=== PATIENT | female | born 1975 | race Caucasian/White ===

== ENCOUNTER 2017-05-03 20:35 | Inpatient (IN) | payer OTHER ==
[~2017-05-03] VITALS: Ht 167.6 cm; Wt 63.5 kg
[~2017-05-03 20:35] MED LIST: OXYC1SOL5 PO; PRENCAP10 PO
[2017-05-03] MEDS ORDERED: SODIUM CHLOR 0.9% 1000 ML INJ 1,000 ML IV ONE ×2 (21:09→23:30)
[2017-05-03] MEDS ORDERED: SODIUM CHLORIDE 0.9% FLUSH 10 ML FLUSH IVF PRN (21:15)
[2017-05-03] MEDS ORDERED: MORPHINE SULFATE 4 MG/ML INJ IV PUSH ONE ×3 (21:15→23:30)
[2017-05-03] MEDS ORDERED: ONDANSETRON HCL 4 MG/2 ML VIAL IV PUSH ONE (21:15)
--- NOTE | 2017-05-03 21:18 | PD ---
HPI Chief Complaint: Abdominal Pain Time Seen by Provider: 21:02 Travel History International Travel<30 days: No Contact w/Intl Traveler<30days: No Traveled to known affect area: No History of Present Illness HPI The patient is a 41-year-old female who presents to the emergency department for abdominal pain and diarrhea. The patient states she was recently treated for bronchitis/pneumonia infection with Levaquin. The patient finished the Levaquin several days ago. The patient then developed abdominal pain that was generalized, crampy, and associated diarrhea. The patient was seen in an urgent care on Tuesday and diagnosed with colitis, she was prescribed Bentyl and Zofran. The patient states the pain has been intermittent , but returned earlier today, approximately 2 hours prior to arrival. The abdominal pain is generalized, worse in the lower abdomen, crampy, and severe. She notes approximately 15-20 episodes of diarrhea per day which she describes as loose, watery, brown with a foul smell. She denies any known history of C. difficile. She denies any recent international travel. She does complain of mild nausea but denies any vomiting today. Previous abdominal surgeries include section. The patient's last menstrual cycle was on April 20 , however, she has had some spotting over the last 2 days. She denies any dysuria, frequency, urgency, or vaginal discharge. The patient's primary physician is Dr. Ramos. [facility] Past Medical History Respiratory: Yes (STATES HX OF SINUS PROBLEMS) ?: Not Past Surgical History Narrative Surgical section Social History Alcohol Use: Yes (OCCASIONALLY) Tobacco Use: Yes (1/2 PPD.STATES STARTED CHANTIX PCK 2 DAYS AGO.) Substance Use: No Allergies-Medications (Allergen,Severity, Reaction): Coded Allergies: penicillin G (Unverified Allergy, Severe, 05/03/17) amoxicillin (Unverified Allergy, Unknown, 05/03/17) Reported Meds & Prescriptions Reported Meds & Active Scripts Active Reported Dulera 120 Act Inh (Mometasone-Formoterol 120 Act Inh) 100-5 Mcg/Act Inh 2 Puff INH BID Review of Systems Except as stated in HPI: all other systems reviewed are Neg General / Constitutional: No: Fever Cardiovascular: No: Chest Pain or Discomfort Respiratory: Positive: Cough, No: Shortness of Breath Gastrointestinal: Positive: Nausea, Vomiting, Diarrhea, Abdominal Pain Genitourinary: Positive: Vaginal Bleeding (spotting), No: Dysuria, Discharge Physical Exam Narrative GENERAL: Awake, alert, pleasant 41-year-old female who appears her stated age and is in no acute respiratory distress. She does appear moderate pain. SKIN: Focused skin assessment warm/dry. HEAD: Atraumatic. Normocephalic. EYES: Pupils equal and round. No scleral icterus. No injection or drainage. ENT: No nasal bleeding or discharge. Mucous membranes pink and moist. NECK: Trachea midline. No JVD. CARDIOVASCULAR: Regular rate and rhythm. No murmur appreciated. Heart rate in the 80s. RESPIRATORY: No accessory muscle use. Clear to auscultation. Breath sounds equal bilaterally. GASTROINTESTINAL: Abdomen diffusely tender, worse in the suprapubic and left lower quadrant. No guarding or rigidity. MUSCULOSKELETAL: No obvious deformities. No clubbing. No cyanosis. No edema. NEUROLOGICAL: Awake and alert. No obvious cranial nerve deficits. Motor grossly within normal limits. Normal speech. PSYCHIATRIC: Appropriate mood and affect; insight and judgment normal. Data Data Last Documented VS Vital Signs Date Time Temp Pulse Resp B/P (MAP) Pulse Ox O2 Delivery O2 Flow Rate FiO2 05/03/17 22:06 80 20 143/62 (89) 100 Room Air Orders Orders Complete Blood Count With Diff (05/03/17 21:09) Comprehensive Metabolic Panel (05/03/17 21:09) Urinalysis - C+S If Indicated (05/03/17 21:09) Lipase (05/03/17 21:09) Ct Abd/Pel W/O Iv Contrast (05/03/17 ) Iv Access Insert/Monitor (05/03/17 21:09) Ecg Monitoring (05/03/17 21:09) Oximetry (05/03/17 21:09) Morphine Inj (Morphine Inj) (05/03/17 21:15) Ondansetron Inj (Zofran Inj) (05/03/17 21:15) Sodium Chlor 0.9% 1000 Ml Inj (Ns 1000 M (05/03/17 21:09) Sodium Chloride 0.9% Flush (Ns Flush) (05/03/17 21:15) C Diff Toxin Pcr (05/03/17 21:09) Enteric Path (Stool) (05/03/17 21:09) Ed Urine Pregnancytest Poc (05/03/17 21:09) Lactic Acid (05/03/17 21:09) Potassium Chlor 20 Meq Premix (Kcl 20 Me (05/03/17 22:00) Metronidazole 500 Mg Inj (Flagyl 500 Mg (05/03/17 22:00) Morphine Inj (Morphine Inj) (05/03/17 22:15) (Hub Use Only)Inp Phy Cons/Ref (05/03/17 ) Admit Order (Ed Use Only) (05/03/17 23:19) Labs Laboratory Tests Test 05/03/17 21:15 05/03/17 21:45 White Blood Count 20.4 TH/MM3 Red Blood Count 5.27 MIL/MM3 Hemoglobin 15.1 GM/DL Hematocrit 45.3 % Mean Corpuscular Volume 85.8 FL Mean Corpuscular Hemoglobin 28.6 PG Mean Corpuscular Hemoglobin Concent 33.4 % Red Cell Distribution Width 14.0 % Platelet Count 502 TH/MM3 Mean Platelet Volume 6.9 FL Neutrophils (%) (Auto) 65.1 % Lymphocytes (%) (Auto) 28.5 % Monocytes (%) (Auto) 5.4 % Eosinophils (%) (Auto) 0.3 % Basophils (%) (Auto) 0.7 % Neutrophils # (Auto) 13.3 TH/MM3 Lymphocytes # (Auto) 5.8 TH/MM3 Monocytes # (Auto) 1.1 TH/MM3 Eosinophils # (Auto) 0.1 TH/MM3 Basophils # (Auto) 0.1 TH/MM3 CBC Comment AUTO DIFF Differential Total Cells Counted 100 Neutrophils % (Manual) 67 % Lymphocytes % 25 % Monocytes % 8 % Neutrophils # (Manual) 13.7 TH/MM3 Differential Comment FINAL DIFF MANUAL Platelet Estimate HIGH Platelet Morphology Comment NORMAL Red Cell Morphology Comment NORMAL Blood Urea Nitrogen 17 MG/DL Creatinine 0.87 MG/DL Random Glucose 92 MG/DL Total Protein 7.2 GM/DL Albumin 3.5 GM/DL Calcium Level 8.3 MG/DL Alkaline Phosphatase 63 U/L Aspartate Amino Transf (AST/SGOT) 14 U/L Alanine Aminotransferase (ALT/SGPT) 25 U/L Total Bilirubin 0.5 MG/DL Sodium Level 137 MEQ/L Potassium Level 2.8 MEQ/L Chloride Level 103 MEQ/L Carbon Dioxide Level 24.1 MEQ/L Anion Gap 10 MEQ/L Estimat Glomerular Filtration Rate 72 ML/MIN Lactic Acid Level 1.8 mmol/L Lipase 216 U/L Urine Color YELLOW Urine Turbidity CLEAR Urine pH 6.5 Urine Specific [place] 1.016 Urine Protein TRACE mg/dL Urine Glucose (UA) NEG mg/dL Urine Ketones NEG mg/dL Urine Occult Blood NEG Urine Nitrite NEG Urine Bilirubin NEG Urine Urobilinogen LESS THAN 2.0 MG/DL Urine Leukocyte Esterase NEG Urine RBC 1 /hpf Urine WBC 1 /hpf Urine Squamous Epithelial Cells 2 /hpf Urine Bacteria RARE /hpf Urine Hyaline Casts 1 /lpf Urine Mucus FEW /lpf Microscopic Urinalysis Comment CULT NOT INDICATED Stool C. difficile Toxin (PCR) NEGATIVE Stl C. difficile Toxin Epiderm 027 PRESUMPTIVE NEGATIVE MDM Medical Decision Making Medical Screen Exam Complete: Yes Emergency Medical Condition: Yes Medical Record Reviewed: Yes Interpretation(s) Last Impressions Abdomen/Pelvis CT 05/03/17 0000 Signed Impressions: Service Date/Time: Wednesday, May 03, 2017 21:38 - CONCLUSION: 1. Diffuse air-filled mildly dilated colon raising possibility of diffuse ileus versus distal colonic obstruction. Clinical correlation is recommended. 2. Minimal focal reticulonodular infiltrate within the left lower lobe. Mao Ferrera MD Laboratory Tests Test 05/03/17 21:15 05/03/17 21:45 White Blood Count 20.4 TH/MM3 Red Blood Count 5.27 MIL/MM3 Hemoglobin 15.1 GM/DL Hematocrit 45.3 % Mean Corpuscular Volume 85.8 FL Mean Corpuscular Hemoglobin 28.6 PG Mean Corpuscular Hemoglobin Concent 33.4 % Red Cell Distribution Width 14.0 % Platelet Count 502 TH/MM3 Mean Platelet Volume 6.9 FL Neutrophils (%) (Auto) 65.1 % Lymphocytes (%) (Auto) 28.5 % Monocytes (%) (Auto) 5.4 % Eosinophils (%) (Auto) 0.3 % Basophils (%) (Auto) 0.7 % Neutrophils # (Auto) 13.3 TH/MM3 Lymphocytes # (Auto) 5.8 TH/MM3 Monocytes # (Auto) 1.1 TH/MM3 Eosinophils # (Auto) 0.1 TH/MM3 Basophils # (Auto) 0.1 TH/MM3 CBC Comment AUTO DIFF Differential Total Cells Counted 100 Neutrophils % (Manual) 67 % Lymphocytes % 25 % Monocytes % 8 % Neutrophils # (Manual) 13.7 TH/MM3 Differential Comment FINAL DIFF MANUAL Platelet Estimate HIGH Platelet Morphology Comment NORMAL Red Cell Morphology Comment NORMAL Blood Urea Nitrogen 17 MG/DL Creatinine 0.87 MG/DL Random Glucose 92 MG/DL Total Protein 7.2 GM/DL Albumin 3.5 GM/DL Calcium Level 8.3 MG/DL Alkaline Phosphatase 63 U/L Aspartate Amino Transf (AST/SGOT) 14 U/L Alanine Aminotransferase (ALT/SGPT) 25 U/L Total Bilirubin 0.5 MG/DL Sodium Level 137 MEQ/L Potassium Level 2.8 MEQ/L Chloride Level 103 MEQ/L Carbon Dioxide Level 24.1 MEQ/L Anion Gap 10 MEQ/L Estimat Glomerular Filtration Rate 72 ML/MIN Lactic Acid Level 1.8 mmol/L Lipase 216 U/L Urine Color YELLOW Urine Turbidity CLEAR Urine pH 6.5 Urine Specific [place] 1.016 Urine Protein TRACE mg/dL Urine Glucose (UA) NEG mg/dL Urine Ketones NEG mg/dL Urine Occult Blood NEG Urine Nitrite NEG Urine Bilirubin NEG Urine Urobilinogen LESS THAN 2.0 MG/DL Urine Leukocyte Esterase NEG Urine RBC 1 /hpf Urine WBC 1 /hpf Urine Squamous Epithelial Cells 2 /hpf Urine Bacteria RARE /hpf Urine Hyaline Casts 1 /lpf Urine Mucus FEW /lpf Microscopic Urinalysis Comment CULT NOT INDICATED Stool C. difficile Toxin (PCR) NEGATIVE Stl C. difficile Toxin Epiderm 027 PRESUMPTIVE NEGATIVE Differential Diagnosis Differential diagnosis includes colitis, C. difficile, enteritis, partial small bowel obstruction, ileus, perforated viscus, diverticulitis, dehydration, ovarian torsion, ectopic , atypical appendicitis. Narrative Course IV was established, labs are drawn and sent, and the patient was placed on cardiac telemetry monitoring and continuous pulse oximetry monitoring. The patient was administer morphine, Zofran, and IV fluids. C. difficile was ordered. Noncontrast CT of the abdomen and pelvis was ordered to evaluate for possible pancolitis versus perforated viscus. UA was sent to lab and bedside UA test was obtained. CT revealed diffuse air-filled mildly dilated colon raising possibility of diffuse ileus versus distal colonic obstruction, clinical correlation is recommended. Minimal focal reticulonodular infiltrate within the left lower lobe. The patient has a diffuse air field mildly dilated colon, could be ileus versus distal colonic obstruction, versus toxic megacolon from C. difficile. Stool was sent for C. difficile, patient was administered Flagyl 500 mg intravenously. The patient's potassium is 2.8, she was administered Flagyl intravenously. The patient will be admitted to the on-call medical service. C. difficile was negative. Patient has apparent ileus versus colonic obstruction. May need GI and/or surgery evaluation is symptoms persist. Sepsis Criteria SIRS Criteria (2 or more): WBC > 21336, < 4000 or > 10% bands Physician Communication Physician Communication The on-call medical service was paged for admission. I discussed the patient with Dr. Watson who agrees with admission. Diagnosis Primary Impression: Ileus Additional Impressions: Diarrhea Qualified Codes: R19.7 - Diarrhea, unspecified Hypokalemia Admitting Information Admitting Physician Requests: Admit Condition: Stable Zac Sneed MD May 03, 2017 21:18
[2017-05-03 21:22] VITALS: BP 137/61; PULSE 83; RESP 24; O2SAT 100
[2017-05-03] MEDS ORDERED: DULE100A INH (21:22)
[2017-05-03 21:29] LABS: AUTOMATED NEUTROPHIL # 13.3 TH/MM3 (1.8-7.7); BASOPHIL # 0.1 TH/MM3 (0-0.2); BASOPHIL % 0.7 % (0.0-2.0); EOSINOPHIL # 0.1 TH/MM3 (0-0.4); EOSINOPHIL % 0.3 % (0.0-4.0); HEMATOCRIT 45.3 % (35.0-46.0); HEMOGLOBIN 15.1 GM/DL (11.6-15.3); LYMPH % 28.5 % (9.0-44.0); LYMPHOCYTE # 5.8 TH/MM3 (1.0-4.8); MEAN CELL VOLUME 85.8 FL (80.0-100.0); MEAN CORPUSCULAR HEMOGLOBIN 28.6 PG (27.0-34.0); MEAN CORPUSCULAR HGB CONC 33.4 % (32.0-36.0); MEAN PLATELET VOLUME 6.9 FL (7.0-11.0); MONO % 5.4 % (0.0-8.0); MONOCYTE # 1.1 TH/MM3 (0-0.9); NEUT % 65.1 % (16.0-70.0); PLATELET COUNT 502 TH/MM3 (150-450); RED BLOOD COUNT 5.27 MIL/MM3 (4.00-5.30); WHITE BLOOD COUNT 20.4 TH/MM3 (4.0-11.0)
[2017-05-03 21:48] LABS: ALBUMIN 3.5 GM/DL (3.4-5.0); ALT (GPT) 25 U/L (10-53); AST (GOT) 14 U/L (15-37); BICARBONATE 24.1 MEQ/L (21.0-32.0); BLOOD UREA NITROGEN 17 MG/DL (7-18); CALCIUM 8.3 MG/DL (8.5-10.1); CHLORIDE 103 MEQ/L (98-107); CREATININE 0.87 MG/DL (0.50-1.00); GLOMERULAR FILTRATION RATE 72 ML/MIN (>89); GLUCOSE,RANDOM 92 MG/DL (74-106); SODIUM (NA) 137 MEQ/L (136-145)
--- NOTE | 2017-05-03 21:54 | RADRPT ---
EXAM DATE/TIME: 05/03/2017 21:38 [facility] COMPARISON: No previous studies available for comparison. INDICATIONS : Patient complains of abdominal pain. ORAL CONTRAST: No oral contrast ingested. RADIATION DOSE: 6.64 CTDIvol (mGy) MEDICAL HISTORY : None SURGICAL HISTORY : None. ENCOUNTER: Initial ACUITY: 1 day PAIN SCALE: 10/10 LOCATION: lower quadrant abdomen TECHNIQUE: Volumetric scanning of the abdomen and pelvis was performed. Using automated exposure control and ad justment of the mA and/or kV according to patient size, radiation dose was kept as low as reasonably achievable to obtain optimal diagnostic quality images. DICOM format image data is available electro nically for review and comparison. FINDINGS: LOWER LUNGS: Minimal reticulonodular infiltrate is noted within the left lower lobe. LIVER: Homogeneous density without lesion. There is no dilation of the biliary tree. No calcified gallston es. SPLEEN: Normal size without lesion. PANCREAS: Within normal limits. KIDNEYS: Normal in size and shape. There is no mass, stone, or hydronephrosis. ADRENAL GLANDS: Within normal limits. VASCULAR: There is no aortic aneurysm. BOWEL/MESENTERY: Diffuse air-filled mildly dilated loops of colon are noted. No definite transition point is identifie d on this examination. Differential includes diffuse ileus or distal colonic obstruction. Clinical co rrelation is recommended. ABDOMINAL WALL: Within normal limits. RETROPERITONEUM: There is no lymphadenopathy. BLADDER: No wall thickening or mass. REPRODUCTIVE: Within normal limits. INGUINAL: There is no lymphadenopathy or hernia. MUSCULOSKELETAL: Within normal limits for patient age. CONCLUSION: 1. Diffuse air-filled mildly dilated colon raising possibility of diffuse ileus versus distal colonic obstruction. Clinical correlation is recommended. 2. Minimal focal reticulonodular infiltrate within the left lower lobe. Mao Ferrera MD on May 03, 2017 at 21:45 Board Certified Radiologist. This report was verified electronically.
[2017-05-03 21:56] LABS: ALKALINE PHOSPHATASE 63 U/L (45-117); TOTAL BILIRUBIN ADULT 0.5 MG/DL (0.2-1.0); TOTAL PROTEIN 7.2 GM/DL (6.4-8.2)
[2017-05-03] MEDS ORDERED: metroNIDAZOLE 500 MG INJ 100 ML IV ONE (22:00)
[2017-05-03] MEDS: POTASSIUM CHLOR 20 MEQ PREMIX 100 ML IV SCH (22:00)
[2017-05-03 22:06] VITALS: BP 143/62; PULSE 80; RESP 20; O2SAT 100
[2017-05-03 22:06] LABS: BACTERIA, URINE RARE /hpf; BILIRUBIN, URINE NEG (NEG); BLOOD, URINE NEG (NEG); GLUCOSE,URINE NEG (NEG); HYALINE CAST, URINE 1 /lpf (RARE); KETONE, URINE NEG (NEG); MUCUS URINE FEW /lpf (OCC); NITRITE,URINE NEG (NEG); PH, URINE 6.5 (5.0-8.5); SQUAMOUS EPITHELIAL CELL URINE 2 /hpf (0-5); URINE COLOR YELLOW (YELLW/STRAW); URINE LEUKOCYTE ESTERASE NEG (NEG)
[2017-05-03 22:37] LABS: LYMPHOCYTES 25 % (9-44); MONOCYTES 8 % (0-8); NEUTROPHIL # MANUAL DIFF 13.7 TH/MM3 (1.8-7.7); POLYS (SEG NEUTROPHILS) 67 % (16-70)
[2017-05-03] MEDS ORDERED: MAGNESIUM HYDROXIDE SUSP 30 ML CUP PO PRN (23:30)
[2017-05-03] MEDS ORDERED: MORPHINE SULFATE 2 MG/ML INJ IV PUSH PRN ×2 (23:30)
[2017-05-03] MEDS ORDERED: SODIUM CHLORIDE 0.9% FLUSH 10 ML FLUSH IV FLUSH PRN (23:30)
[2017-05-03] MEDS ORDERED: BISACODYL 10 MG SUPP RECTAL PRN (23:30)
[2017-05-03] MEDS ORDERED: ACETAMINOPHEN 325 MG TAB PO PRN (23:30)
[2017-05-03] MEDS ORDERED: NS + KCL 20 MEQ INJ 1,000 ML IV SCH (23:30)
[2017-05-03] MEDS ORDERED: NALOXONE HCL 0.4 MG/ML AMP IV PUSH PRN (23:30)
[2017-05-03] MEDS ORDERED: LACTULOSE SYRUP 20 GM/30 ML CUP PO PRN (23:30)
[2017-05-03] MEDS ORDERED: SENNOSIDES 8.6 MG TAB PO PRN (23:30)
[2017-05-03] MEDS ORDERED: HYDROmorphone HCL PF 2 MG/ML VIAL IV PUSH PRN (23:45)
--- NOTE | 2017-05-03 23:59 | HHI.HP ---
[facility] [place] [facility]an Ramos, Admission Diagnosis ileus versus colonic obstruction, diarrhea, leukocytosis Diagnoses: Travel History International Travel<30 Days: No Contact w/Intl Traveler <30 Da: No Traveled to Known Affected Are: No History of Present Illness 41-year-old female presents to the emergency department for the evaluation of severe abdominal pain. The patient reports that 4 weeks ago she was treated for bronchitis with Levaquin and prednisone. On Tuesday she then developed severe, cramping abdominal pain with accompanying nausea/vomiting/diarrhea. She reports she is having diarrhea approximately 15-20 times daily. She has accompanying fever/chills. Complains of abdominal bloating. 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 She was seen in the urgent care on Tuesday morning, diagnosed with colitis given Bentyl and Zofran and a liter of IV fluids. The patient reports that her cramping abdominal pain and diarrhea continued to worsen and she came to the emergency department for further evaluation. Vital signs: Pulse 83, respirations 20, BP 137/61, pulse ox 100% on room air. Review of Systems Except as stated in HPI: all other systems reviewed are Neg Past Family Social History Past Medical History None Past Surgical History 2 Reported Medications Reported Meds & Active Scripts Active Reported Dulera 120 Act Inh (Mometasone-Formoterol 120 Act Inh) 100-5 Mcg/Act Inh 2 Puff INH BID Allergies: Coded Allergies: penicillin G (Unverified Allergy, Severe, 05/03/17) amoxicillin (Unverified Allergy, Unknown, 05/03/17) Family History Negative for diabetes mellitus and coronary artery disease Social History Occasional alcohol. Denies tobacco and illicit drugs Physical Exam Vital Signs Vital Signs Date Time Temp Pulse Resp B/P (MAP) Pulse Ox O2 Delivery O2 Flow Rate FiO2 05/03/17 22:06 80 20 143/62 (89) 100 Room Air 05/03/17 21:58 20 05/03/17 21:22 83 24 137/61 (86) 100 Room Air 05/03/17 21:22 24 Physical Exam GENERAL: female sitting up in bed in mild distress SKIN: No rashes, ecchymoses or lesions. Cool and dry. HEAD: Atraumatic. Normocephalic. No temporal or scalp tenderness. EYES: Pupils equal round and reactive. Extraocular motions intact. No scleral icterus. No injection or drainage. ENT: Nose without bleeding, purulent drainage or septal hematoma. Throat without erythema, tonsillar hypertrophy or exudate. Uvula midline. Airway patent. NECK: Trachea midline. No JVD or lymphadenopathy. Supple, nontender, no meningeal signs. CARDIOVASCULAR: Regular rate and rhythm without murmurs, gallops, or rubs. RESPIRATORY: Clear to auscultation. Breath sounds equal bilaterally. No wheezes , rales, or rhonchi. GASTROINTESTINAL: Abdomen distended. Exquisitely tender to palpation worse in the periumbilical region. Hypoactive bowel sounds. MUSCULOSKELETAL: Extremities without clubbing, cyanosis, or edema. No joint tenderness, effusion, or edema noted. No calf tenderness. NEUROLOGICAL: Awake and alert. Cranial nerves II through XII intact. Motor and sensory grossly within normal limits. Normal speech. Laboratory Laboratory Tests Test 05/03/17 21:15 05/03/17 21:45 White Blood Count 20.4 Red Blood Count 5.27 Hemoglobin 15.1 Hematocrit 45.3 Mean Corpuscular Volume 85.8 Mean Corpuscular Hemoglobin 28.6 Mean Corpuscular Hemoglobin Concent 33.4 Red Cell Distribution Width 14.0 Platelet Count 502 Mean Platelet Volume 6.9 Neutrophils (%) (Auto) 65.1 Lymphocytes (%) (Auto) 28.5 Monocytes (%) (Auto) 5.4 Eosinophils (%) (Auto) 0.3 Basophils (%) (Auto) 0.7 Neutrophils # (Auto) 13.3 Lymphocytes # (Auto) 5.8 Monocytes # (Auto) 1.1 Eosinophils # (Auto) 0.1 Basophils # (Auto) 0.1 CBC Comment AUTO DIFF Differential Total Cells Counted 100 Neutrophils % (Manual) 67 Lymphocytes % 25 Monocytes % 8 Neutrophils # (Manual) 13.7 Differential Comment FINAL DIFF MANUAL Platelet Estimate HIGH Platelet Morphology Comment NORMAL Red Cell Morphology Comment NORMAL Blood Urea Nitrogen 17 Creatinine 0.87 Random Glucose 92 Total Protein 7.2 Albumin 3.5 Calcium Level 8.3 Alkaline Phosphatase 63 Aspartate Amino Transf (AST/SGOT) 14 Alanine Aminotransferase (ALT/SGPT) 25 Total Bilirubin 0.5 Sodium Level 137 Potassium Level 2.8 Chloride Level 103 Carbon Dioxide Level 24.1 Anion Gap 10 Estimat Glomerular Filtration Rate 72 Lactic Acid Level 1.8 Lipase 216 Urine Color YELLOW Urine Turbidity CLEAR Urine pH 6.5 Urine Specific [place] 1.016 Urine Protein TRACE Urine Glucose (UA) NEG Urine Ketones NEG Urine Occult Blood NEG Urine Nitrite NEG Urine Bilirubin NEG Urine Urobilinogen LESS THAN 2.0 Urine Leukocyte Esterase NEG Urine RBC 1 Urine WBC 1 Urine Squamous Epithelial Cells 2 Urine Bacteria RARE Urine Hyaline Casts 1 Urine Mucus FEW Microscopic Urinalysis Comment CULT NOT INDICATED Stool C. difficile Toxin (PCR) NEGATIVE Stl C. difficile Toxin Epiderm 027 PRESUMPTIVE NEGATIVE Date/Time Source Procedure Growth Status 05/03/17 21:45 Stool Stool Pending Received Result Diagram: 05/03/17211405/03/172114 Caprini VTE Risk Assessment Caprini VTE Risk Assessment: No/Low Risk (score <= 1) Caprini Risk Assessment Model Point Value = 1 Point Value = 2 Point Value = 3 Point Value = 5 Age 41-60 Minor surgery BMI > 25 kg/m2 Swollen legs Varicose veins or History of unexplained or recurrent spontaneous Oral contraceptives or hormone replacement Sepsis (< 1 month) Serious lung disease, including pneumonia (< 1 month) Abnormal pulmonary function Acute myocardial infarction Congestive heart failure (< 1 month) History of inflammatory bowel disease Medical patient at bed rest Age 61-74 Arthroscopic surgery Major open surgery (> 45 min) Laparoscopic surgery (> 45 min) Malignancy Confined to bed (> 72 hours) Immobilizing plaster cast Central venous access Age >= 75 History of VTE Family history of VTE Factor V Leiden Prothrombin [id number] Lupus anticoagulant Anticardiolipin antibodies Elevated serum homocysteine Heparin-induced thrombocytopenia Other congenital or acquired thrombophilia Stroke (< 1 month) Elective arthroplasty Hip, pelvis, or leg fracture Acute spinal cord injury (< 1 month) Prophylaxis Regimen Total Risk Factor Score Risk Level Prophylaxis Regimen 0-1 Low Early ambulation 2 Moderate Order ONE of the following: *Sequential Compression Device (SCD) *Heparin 5000 units SQ BID 3-4 Higher Order ONE of the following medications: *Heparin 5000 units SQ TID *Enoxaparin/Lovenox 40 mg SQ daily (WT < 150 kg, CrCl > 30 mL/min) *Enoxaparin/Lovenox 30 mg SQ daily (WT < 150 kg, CrCl > 10-29 mL/min) *Enoxaparin/Lovenox 30 mg SQ BID (WT < 150 kg, CrCl > 30 mL/min) AND/OR *Sequential Compression Device (SCD) 5 or more Highest Order ONE of the following medications: *Heparin 5000 units SQ TID (Preferred with Epidurals) *Enoxaparin/Lovenox 40 mg SQ daily (WT < 150 kg, CrCl > 30 mL/min) *Enoxaparin/Lovenox 30 mg SQ daily (WT < 150 kg, CrCl > 10-29 mL/min) *Enoxaparin/Lovenox 30 mg SQ BID (WT < 150 kg, CrCl > 30 mL/min) AND *Sequential Compression Device (SCD) Assessment and Plan Assessment and Plan Assessment/plan: 1. Abdominal pain/nausea/vomiting/diarrhea CT of the abdomen/pelvis showed diffuse air-filled mildly dilated colon. Diffuse ileus versus distal colonic obstruction. Unclear etiology, may be infectious as patient with elevated white count and subjective fever C. difficile negative Continue Flagyl Gastroenterology consulted, appreciate recommendations Nothing by mouth Dilaudid for pain 2. URI/bronchitis Patient continues to have productive cough Status post Levaquin Chest x-ray pending 3. Hypokalemia Supplement with IV potassium Monitor BMP FEN NPO NS + 20 K at 100 cc/hr Electrolytes: As above Early ambulation Case discussed with ED physician at length Physician Certification 2 Midnight Certification Type: Admission for Inpatient Services Order for Inpatient Services The services are ordered in accordance with Medicare regulations or non- Medicare payer requirements, as applicable. In the case of services not specified as inpatient-only, they are appropriately provided as inpatient services in accordance with the 2-midnight benchmark. Estimated LOS (days): 2 2 days is the estimated time the patient will need to remain in the hospital, assuming treatment plan goals are met and no additional complications. Post-Hospital Plan: Not yet determined Shanae Watson MD May 03, 2017 23:59
[2017-05-04] MEDS ORDERED: POTASSIUM CHLOR 10 MEQ PREMIX 100 ML IV SCH
[2017-05-04 00:14] VITALS: BP 107/55; PULSE 79; RESP 18; TEMP 96.9; O2SAT 99
--- NOTE | 2017-05-04 00:32 | RADRPT ---
EXAM DATE/TIME: 05/03/2017 23:56 [facility] COMPARISON: CT ABDOMEN & PELVIS W/O CONTRAST, May 03, 2017, 21:38. INDICATIONS : Evaluate for pneumonia. MEDICAL HISTORY : None. SURGICAL HISTORY : None. ENCOUNTER: Initial ACUITY: 1 day PAIN SCORE: 0/10 LOCATION: Bilateral chest FINDINGS: Bronchial thickening present. No focal consolidation. Mild distal airway disease left lung base seen on CT performed yesterday. No effusion. No pneumothorax. CONCLUSION: 1. Bronchial thickening without focal consolidation. Distal airway disease left lower lobe. Marcos Rodriges MD on May 04, 2017 at 0:27 Board Certified Radiologist. This report was verified electronically.
[2017-05-04] MEDS: POTASSIUM CHLOR 10 MEQ PREMIX 100 ML IV SCH ×2 (02:00→03:00)
[2017-05-04] MEDS: POTASSIUM CHLOR 20 MEQ PREMIX 100 ML IV SCH ×3 (03:04→12:00)
[2017-05-04 04:05] VITALS: BP 120/63; PULSE 88; RESP 20; TEMP 96.6; O2SAT 99
[2017-05-04 08:00] VITALS: BP 126/65; PULSE 74; RESP 18; TEMP 96.9; O2SAT 98
[2017-05-04] MEDS: SODIUM CHLORIDE 0.9% FLUSH 10 ML FLUSH IV FLUSH SCH ×2 (09:00→20:19)
[2017-05-04 09:06] LABS: AUTOMATED NEUTROPHIL # 9.9 TH/MM3 (1.8-7.7); BASOPHIL % 0.2 % (0.0-2.0); EOSINOPHIL # 0.2 TH/MM3 (0-0.4); EOSINOPHIL % 1.4 % (0.0-4.0); HEMATOCRIT 39.7 % (35.0-46.0); HEMOGLOBIN 13.1 GM/DL (11.6-15.3); LYMPH % 20.1 % (9.0-44.0); LYMPHOCYTE # 2.8 TH/MM3 (1.0-4.8); MEAN CELL VOLUME 87.1 FL (80.0-100.0); MEAN CORPUSCULAR HEMOGLOBIN 28.8 PG (27.0-34.0); MEAN CORPUSCULAR HGB CONC 33.1 % (32.0-36.0); MEAN PLATELET VOLUME 6.8 FL (7.0-11.0); MONO % 6.4 % (0.0-8.0); MONOCYTE # 0.9 TH/MM3 (0-0.9); NEUT % 71.9 % (16.0-70.0); PLATELET COUNT 401 TH/MM3 (150-450); RED BLOOD COUNT 4.56 MIL/MM3 (4.00-5.30); RED CELL DISTRIBUTION WIDTH 14.5 % (11.6-17.2); WHITE BLOOD COUNT 13.8 TH/MM3 (4.0-11.0)
[2017-05-04 09:24] LABS: ALBUMIN 2.9 GM/DL (3.4-5.0); AST (GOT) 12 U/L (15-37); BICARBONATE 25.5 MEQ/L (21.0-32.0); BLOOD UREA NITROGEN 10 MG/DL (7-18); CALCIUM 7.6 MG/DL (8.5-10.1); CHLORIDE 108 MEQ/L (98-107); CREATININE 0.63 MG/DL (0.50-1.00); GLOMERULAR FILTRATION RATE 105 ML/MIN (>89); GLUCOSE,RANDOM 85 MG/DL (74-106); SODIUM (NA) 140 MEQ/L (136-145)
[2017-05-04 09:26] LABS: ALKALINE PHOSPHATASE 58 U/L (45-117); ALT (GPT) 20 U/L (10-53); TOTAL BILIRUBIN ADULT 0.6 MG/DL (0.2-1.0); TOTAL PROTEIN 5.9 GM/DL (6.4-8.2)
[2017-05-04] MEDS: ONDANSETRON HCL 4 MG/2 ML VIAL IVP PRN ×2 (11:22→21:10)
[2017-05-04 12:00] VITALS: BP 118/63; PULSE 73; RESP 18; TEMP 98.1; O2SAT 97
[2017-05-04] MEDS: metroNIDAZOLE 500 MG INJ 100 ML IV SCH ×3 (12:32→22:10)
--- NOTE | 2017-05-04 14:55 | PD.CONS ---
HPI History of Present Illness This is a 41 year old F with no significant medical problems. She was recently diagnosed with bronchitis approx a month ago and placed on Levaquin and Prednisone. She states she began having abdominal pain and some distension. It got so bad that she went to an urgent care and they prescribed her Bentyl and Zofran. She reports some relief with this medication, however, on Tuesday she began vomiting and having multiple episodes of diarrhea. She reports the diarrhea has been non-stop until today and she is no longer passing flatus. Denies BRB in stool or black, tarry stools. Has not had anything to eat or drink in two days. Reports she was vomiting on Tuesday but it has since resolved , has been taking Zofran frequently for nausea. 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 She has only had one isolated episode of C. Diff. had an EGD and colonoscopy done at this time, states EGD was normal and colonoscopy consistent with aforementioned pseudomembranous colitis. She has not had repeat exams since then. C. Diff toxin and epid done yesterday, negative. CT abdomen and pelvis ( 05/03) noted, revealed diffuse air-filled mildly dilated colon raising possibility of diffuse ileus versus distal colonic obstruction. Pt does have family history significant for colon cancer, paternal grandmother and maternal grandmother with history of Crohns. (Lauren Conway) PFSH Past Medical History None Past Surgical History 2 (Lauren Conway) Coded Allergies: penicillin G (Unverified Allergy, Severe, 05/03/17) amoxicillin (Unverified Allergy, Unknown, 05/03/17) Family History Negative for diabetes mellitus and coronary artery disease Social History Occasional alcohol. Denies tobacco and illicit drugs (Lauren Conway) Review of Systems Gastrointestinal: COMPLAINS OF: Abdominal pain, Diarrhea, Nausea, Vomiting, Swelling of Abdomen, DENIES: Black stools, Bloody stools, Constipation, Difficulty Swallowing, Odynophagia, Heartburn, Hematemesis (Lauren Conway ) GI Exam Vitals I&O Vital Signs Date Time Temp Pulse Resp B/P (MAP) Pulse Ox O2 Delivery O2 Flow Rate FiO2 05/04/17 12:00 98.1 73 18 118/63 (81) 97 05/04/17 08:00 96.9 74 18 126/65 (85) 98 05/04/17 04:05 96.6 88 20 120/63 (82) 99 05/04/17 00:14 96.9 79 18 107/55 (72) 99 05/03/17 22:06 80 20 143/62 (89) 100 Room Air 05/03/17 21:58 20 05/03/17 21:22 83 24 137/61 (86) 100 Room Air 05/03/17 21:22 24 I/O 05/03/17 05/03/17 05/03/17 05/04/17 05/04/17 05/04/17 07:00 15:00 23:00 07:00 15:00 23:00 Intake Total 1100 ml 0 ml 100 ml Balance 1100 ml 0 ml 100 ml Intake Oral 0 ml IV Total 1100 ml 100 ml # Voids 2 # Bowel Movements 0 Imaging Last Impressions Chest X-Ray 05/03/17 0000 Signed Impressions: Service Date/Time: Wednesday, May 03, 2017 23:56 - CONCLUSION: 1. Bronchial thickening without focal consolidation. Distal airway disease left lower lobe. Marcos Rodriges MD Abdomen/Pelvis CT 05/03/17 0000 Signed Impressions: Service Date/Time: Wednesday, May 03, 2017 21:38 - CONCLUSION: 1. Diffuse air-filled mildly dilated colon raising possibility of diffuse ileus versus distal colonic obstruction. Clinical correlation is recommended. 2. Minimal focal reticulonodular infiltrate within the left lower lobe. Mao Ferrera MD Laboratory Test 05/03/17 21:15 05/03/17 21:45 05/04/17 08:09 White Blood Count 20.4 TH/MM3 13.8 TH/MM3 Red Blood Count 5.27 MIL/MM3 4.56 MIL/MM3 Hemoglobin 15.1 GM/DL 13.1 GM/DL Hematocrit 45.3 % 39.7 % Mean Corpuscular Volume 85.8 FL 87.1 FL Mean Corpuscular Hemoglobin 28.6 PG 28.8 PG Mean Corpuscular Hemoglobin Concent 33.4 % 33.1 % Red Cell Distribution Width 14.0 % 14.5 % Platelet Count 502 TH/MM3 401 TH/MM3 Mean Platelet Volume 6.9 FL 6.8 FL Neutrophils (%) (Auto) 65.1 % 71.9 % Lymphocytes (%) (Auto) 28.5 % 20.1 % Monocytes (%) (Auto) 5.4 % 6.4 % Eosinophils (%) (Auto) 0.3 % 1.4 % Basophils (%) (Auto) 0.7 % 0.2 % Neutrophils # (Auto) 13.3 TH/MM3 9.9 TH/MM3 Lymphocytes # (Auto) 5.8 TH/MM3 2.8 TH/MM3 Monocytes # (Auto) 1.1 TH/MM3 0.9 TH/MM3 Eosinophils # (Auto) 0.1 TH/MM3 0.2 TH/MM3 Basophils # (Auto) 0.1 TH/MM3 0.0 TH/MM3 CBC Comment AUTO DIFF DIFF FINAL Differential Total Cells Counted 100 Neutrophils % (Manual) 67 % Lymphocytes % 25 % Monocytes % 8 % Neutrophils # (Manual) 13.7 TH/MM3 Differential Comment FINAL DIFF MANUAL Platelet Estimate HIGH Platelet Morphology Comment NORMAL Red Cell Morphology Comment NORMAL Blood Urea Nitrogen 17 MG/DL 10 MG/DL Creatinine 0.87 MG/DL 0.63 MG/DL Random Glucose 92 MG/DL 85 MG/DL Total Protein 7.2 GM/DL 5.9 GM/DL Albumin 3.5 GM/DL 2.9 GM/DL Calcium Level 8.3 MG/DL 7.6 MG/DL Alkaline Phosphatase 63 U/L 58 U/L Aspartate Amino Transf (AST/SGOT) 14 U/L 12 U/L Alanine Aminotransferase (ALT/SGPT) 25 U/L 20 U/L Total Bilirubin 0.5 MG/DL 0.6 MG/DL Sodium Level 137 MEQ/L 140 MEQ/L Potassium Level 2.8 MEQ/L 3.2 MEQ/L Chloride Level 103 MEQ/L 108 MEQ/L Carbon Dioxide Level 24.1 MEQ/L 25.5 MEQ/L Anion Gap 10 MEQ/L 7 MEQ/L Estimat Glomerular Filtration Rate 72 ML/MIN 105 ML/MIN Lactic Acid Level 1.8 mmol/L Magnesium Level 2.1 MG/DL Lipase 216 U/L Urine Color YELLOW Urine Turbidity CLEAR Urine pH 6.5 Urine Specific Cecilia 1.016 Urine Protein TRACE mg/dL Urine Glucose (UA) NEG mg/dL Urine Ketones NEG mg/dL Urine Occult Blood NEG Urine Nitrite NEG Urine Bilirubin NEG Urine Urobilinogen LESS THAN 2.0 MG/DL Urine Leukocyte Esterase NEG Urine RBC 1 /hpf Urine WBC 1 /hpf Urine Squamous Epithelial Cells 2 /hpf Urine Bacteria RARE /hpf Urine Hyaline Casts 1 /lpf Urine Mucus FEW /lpf Microscopic Urinalysis Comment CULT NOT INDICATED Stool C. difficile Toxin (PCR) NEGATIVE Stl C. difficile Toxin Epiderm 027 PRESUMPTIVE NEGATIVE Date/Time Source Procedure Growth Status 05/03/17 21:45 Stool Stool - Final Complete Physical Examination HEENT: Normocephalic; atraumatic CHEST: Diffuse crackles CARDIAC: RRR ABDOMEN: Soft, nondistended, diffuse TTP worse in lower abdomen, bowel sounds active EXTREMITIES: No clubbing, cyanosis, or edema. SKIN: Normal; no rash; no jaundice. [employer] SAL[employer]: No focal deficits; alert and oriented times three. (Lauren Conway) Assessment and Plan Plan Assessment: - Abdominal pain and distention since being started on abx for bronchitis approx 4 weeks ago. Recently seen by urgent care which prescribed Bentyl and Zofran with some relief in symptoms. Started with vomiting and diarrhea on Tuesday and worsening abdominal distention. Pt with hx of pseudomembranous colitis secondary to C. Diff in her 20s. Last EGD and colonoscopy done at this time, colonoscopy consistent with those findings she states EGD was normal. C diff toxin and epid negative. CT abdomen and pelvis W contrast (05/03)--> Diffuse air-filled dilated colon raising possibility of diffuse ileus vs distal colonic obstruction. Pt with family history significant for colon cancer, paternal grandmother and maternal grandmother with hx of Crohns. Exam reveals diffusely tender abdomen, has not had any diarrhea today, denies flatus. Plan: Colonoscopy tomorrow Obtain consents Clear liquids today Magnesium Citrate prep NPO after MN Stool culture Nausea medication as needed Monitor stool count Further recommendations to follow based on results of above and clinical course Pt has been seen and examined by myself and Dr. Tran and this note is written on his behalf (Lauren Conway) Plan Patient was seen and examined, agree with above-noted, questionable etiology for her diarrhea, could be infectious process, but colitis cannot be ruled out we will plan on doing colonoscopy tomorrow (Corina Tran MD) Lauren Conway May 04, 2017 14:54 Corina Tran MD May 04, 2017 16:21
[2017-05-04] MEDS ORDERED: POTASSIUM CHLORIDE 20 MEQ PWD PACKET PO ONE (15:15)
[2017-05-04 16:00] VITALS: BP 127/57; PULSE 79; RESP 18; TEMP 97.2; O2SAT 100
[2017-05-04] MEDS ORDERED: MAGNESIUM CITRATE SOLN 300 ML BTL PO ONE ×2 (16:00→18:00)
--- NOTE | 2017-05-04 17:06 | HHI.PR ---
Subjective Remarks Patient's having abdominal pain. The pains reminding her of C. difficile episode she's had approximately 20 years ago. She had several days of diarrhea before coming into the hospital with abdominal pain. Diarrhea episode was preceded by a course of Levaquin which he took to treat pneumonia. She tested negative for C. difficile but this could be a false-negative based on this history. Objective Vital Signs Date Time Temp Pulse Resp B/P (MAP) Pulse Ox O2 Delivery O2 Flow Rate FiO2 05/04/17 12:00 98.1 73 18 118/63 (81) 97 05/04/17 08:00 96.9 74 18 126/65 (85) 98 05/04/17 04:05 96.6 88 20 120/63 (82) 99 05/04/17 00:14 96.9 79 18 107/55 (72) 99 05/03/17 22:06 80 20 143/62 (89) 100 Room Air 05/03/17 21:58 20 05/03/17 21:22 83 24 137/61 (86) 100 Room Air 05/03/17 21:22 24 I/O 05/03/17 05/03/17 05/03/17 05/04/17 05/04/17 05/04/17 07:00 15:00 23:00 07:00 15:00 23:00 Intake Total 1100 ml 0 ml 100 ml Balance 1100 ml 0 ml 100 ml Intake Oral 0 ml IV Total 1100 ml 100 ml # Voids 2 # Bowel Movements 0 Result Diagram: 05/04/17 0809 05/04/17 0809 Objective Remarks GENERAL: NAD, A&Ox3 HEAD: Normocephalic. NECK: Supple, trachea midline. No lymphadenopathy. EYES: No scleral icterus. No injection or drainage. CARDIOVASCULAR: Regular rate and rhythm without murmurs, gallops, or rubs. RESPIRATORY: Breath sounds equal bilaterally. No accessory muscle use. GASTROINTESTINAL: Abdomen soft, non-tender, nondistended. MUSCULOSKELETAL: No cyanosis, or edema. SKIN: Warm and dry. NEURO: No focal neurological deficitis. A/P Problem List: (1) Ileus ICD Code: K56.7 - Ileus, unspecified Status: Acute (2) Diarrhea ICD Code: R19.7 - Diarrhea, unspecified Status: Acute (3) Hypokalemia ICD Code: E87.6 - Hypokalemia Status: Acute Assessment and Plan 41-year-old female admitted secondary to abdominal pain with nausea, vomiting, and diarrhea Abdominal pain/nausea/vomiting/diarrhea Possible C. difficile colitis First test to C. difficile is negative Repeat C. difficile testing Continue Flagyl Continue clear liquid diet Bronchitis Follow clinically Hypokalemia Supplementation as tolerated POTASSIUM levels DVT prophylaxis Patient is ambulatory Discharge planning Improvement in diarrhea and symptoms will have to be present prior to consideration for discharge Problem Qualifiers (1) Diarrhea: Qualified Codes: R19.7 - Diarrhea, unspecified Abdulaziz Ayala MD May 04, 2017 17:06
[2017-05-04 19:44] VITALS: BP 104/67; PULSE 89; RESP 18; TEMP 97.9; O2SAT 98
[2017-05-04] MEDS ORDERED: METOPROLOL TARTRATE 25 MG TAB PO PRN (22:45)
[2017-05-04] MEDS ORDERED: SODIUM CHLORID 0.9% 500 ML IV PRN (22:45)
[2017-05-04] MEDS ORDERED: LACTATED RINGER'S 1000 ML IV PRN (22:45)
[2017-05-04] MEDS ORDERED: CHLORHEXIDINE GLUCONATE 2 % 1 PACK (2 CLOTHS) TOPICAL PRN (22:45)
[2017-05-04] MEDS ORDERED: POVIDONE IODINE 5% (ANTISEPSIS KIT) 4 APPLICATIONS EACH NARE PRN (22:45)
[2017-05-05 00:15] VITALS: BP 105/59; PULSE 84; RESP 18; TEMP 98.7; O2SAT 97
[2017-05-05 04:09] VITALS: BP 104/69; PULSE 86; RESP 18; TEMP 98.2; O2SAT 99
[2017-05-05] MEDS: metroNIDAZOLE 500 MG INJ 100 ML IV SCH ×2 (06:23→14:03)
[2017-05-05 07:24] LABS: ALBUMIN 2.9 GM/DL (3.4-5.0); AST (GOT) 12 U/L (15-37); BICARBONATE 21.3 MEQ/L (21.0-32.0); BLOOD UREA NITROGEN 6 MG/DL (7-18); CALCIUM 7.9 MG/DL (8.5-10.1); CHLORIDE 109 MEQ/L (98-107); CREATININE 0.63 MG/DL (0.50-1.00); GLOMERULAR FILTRATION RATE 105 ML/MIN (>89); GLUCOSE,RANDOM 77 MG/DL (74-106); SODIUM (NA) 139 MEQ/L (136-145)
[2017-05-05 07:25] LABS: ALT (GPT) 18 U/L (10-53)
[2017-05-05 07:27] LABS: ALKALINE PHOSPHATASE 58 U/L (45-117); TOTAL BILIRUBIN ADULT 0.9 MG/DL (0.2-1.0)
[2017-05-05 07:58] LABS: AUTOMATED NEUTROPHIL # 8.1 TH/MM3 (1.8-7.7); BASOPHIL % 0.2 % (0.0-2.0); EOSINOPHIL # 0.9 TH/MM3 (0-0.4); EOSINOPHIL % 6.8 % (0.0-4.0); HEMATOCRIT 40.3 % (35.0-46.0); HEMOGLOBIN 13.5 GM/DL (11.6-15.3); LYMPH % 23.2 % (9.0-44.0); LYMPHOCYTE # 2.9 TH/MM3 (1.0-4.8); MEAN CELL VOLUME 86.9 FL (80.0-100.0); MEAN CORPUSCULAR HEMOGLOBIN 29.2 PG (27.0-34.0); MEAN CORPUSCULAR HGB CONC 33.6 % (32.0-36.0); MEAN PLATELET VOLUME 6.6 FL (7.0-11.0); MONOCYTE # 0.8 TH/MM3 (0-0.9); NEUT % 63.8 % (16.0-70.0); PLATELET COUNT 382 TH/MM3 (150-450); RED BLOOD COUNT 4.64 MIL/MM3 (4.00-5.30); RED CELL DISTRIBUTION WIDTH 14.1 % (11.6-17.2); WHITE BLOOD COUNT 12.7 TH/MM3 (4.0-11.0)
[2017-05-05 08:00] VITALS: BP 109/68; PULSE 75; RESP 17; TEMP 98.3; O2SAT 100
[2017-05-05] MEDS ORDERED: POTASSIUM CHLORIDE 20 MEQ PWD PACKET PO ONE (09:00)
[2017-05-05] MEDS ORDERED: APREPITANT 40 MG CAP ONE (10:44)
--- NOTE | 2017-05-05 11:27 | GIPROC ---
[facility] [address] [facility]. [facility] [place], [address] COLONOSCOPY PROCEDURE REPORT EXAM DATE: 05/05/2017 PATIENT NAME: Morgan Posadas MR #: [id number] BIRTHDATE: 1975 ENDOSCOPIST: Emily Burden MD ORDER #: [id number] NURSERYMAN ASSISTANT: Shira Galdamez and Belen Longo STATUS: inpatient INDICATIONS: The patient is a 41 yr old female here for a colonoscopy due to abdominal pain, an abnormal CT, and chronic diarrhea PROCEDURE PERFORMED: Colonoscopy with biopsy MEDICATIONS: None and Per Anesthesia. PREP QUALITY: The Waldorf Bowel Prep Score was Right colon 2, Mid colon 2, and Left colon 3. Total = 7. PREP TYPE:Magnesium Citrate PREP TYPE:Type: ESTIMATED BLOOD LOSS: None CONSENT: The patient understands the risks and benefits of the procedure and understands that these risks include, but are not limited to: sedation, allergic reaction, infection, perforation and/or bleeding. Alternative means of evaluation and treatment include, among others: physical exam, x-rays, and/or surgical intervention. The patient elects to proceed with this endoscopic procedure. medical equipment was checked for proper function. Hand hygiene and appropriate measures for infection prevention was taken. After the risks, benefits and alternatives of the procedure were thoroughly explained, Informed consent was verified, confirmed and timeout was successfully executed by the treatment team. A digital exam revealed external hemorrhoids The Pentax [id number] endoscope was introduced through the anus and advanced to the cecum, which was identified by both the appendix and ileocecal valve. The instrument was then slowly withdrawn as the colon was fully examined. COLON FINDINGS: A 2 x 2cm patch of colitis was found at the ileocecal valve. The mucosa was erythematous and friable. A biopsy was performed using cold forceps. The colon mucosa was otherwise normal. Multiple random biopsies of the area were performed using cold forceps. Retroflexed views revealed internal hemorrhoids and Retroflexed views revealed medium internal hemorrhoids The scope was then completely withdrawn from the patient and the procedure terminated. PROCEDURE WITHDRAWAL TIME:6minutes ADVERSE EVENTS: There were no complications. IMPRESSIONS: 1. 2 x 2cm colitis was found at the ileocecal valve; The mucosa was erythematous and friable; biopsy was performed using cold forceps 2. The colon mucosa was otherwise normal; multiple random biopsies of the area were performed using cold forceps 3. Retroflexed views revealed internal hemorrhoids 4. Retroflexed views revealed medium internal hemorrhoids 5. Revealed external hemorrhoids RECOMMENDATIONS: 1. Await biopsy results. Biopsy results will not be ready for 7-10 days. If you don't hear from us in two weeks, call our office for results. 2. Continue surveillance 3. Yearly hemoccult RECALL: Return 5 years Colonoscopy, pending biopsy results Emily Burden MD eSigned: Emily Burden MD 05/05/2017 11:26 AM cc: PATIENT NAME: Morgan Posadas MR#: [id number]
[2017-05-05 12:00] VITALS: BP 114/59; PULSE 77; RESP 17; TEMP 96.6; O2SAT 100
[2017-05-05] MEDS ORDERED: METR1TAB76 PO (12:23)
[2017-05-05] MEDS ORDERED: LACTTAB8 PO (12:23)
[2017-05-05] MEDS ORDERED: POTA-163 PO (13:03)
--- NOTE | 2017-05-05 13:06 | HHI.DS ---
Discharge Summary Admission Date May 03, 2017 at 23:20 Discharge Date: May 05, 2017 Admitting Diagnosis ileus versus colonic obstruction, diarrhea, leukocytosis (1) Hypokalemia ICD Code: E87.6 - Hypokalemia Diagnosis: Principal Status: Acute (2) Diarrhea ICD Code: R19.7 - Diarrhea, unspecified Diagnosis: Principal Status: Acute (3) Ileus ICD Code: K56.7 - Ileus, unspecified Diagnosis: Principal Status: Acute Procedures Colonoscopy Brief History - From Admission 41-year-old female presents to the emergency department for the evaluation of severe abdominal pain. The patient reports that 4 weeks ago she was treated for bronchitis with Levaquin and prednisone. On Tuesday she then developed severe, cramping abdominal pain with accompanying nausea/vomiting/diarrhea. She reports she is having diarrhea approximately 15-20 times daily. She has accompanying fever/chills. Complains of abdominal bloating. 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 She was seen in the urgent care on Tuesday morning, diagnosed with colitis given Bentyl and Zofran and a liter of IV fluids. The patient reports that her cramping abdominal pain and diarrhea continued to worsen and she came to the emergency department for further evaluation. Vital signs: Pulse 83, respirations 20, BP 137/61, pulse ox 100% on room air. CBC/BMP: 05/05/17 0730 05/05/17 0530 Significant Findings Laboratory Tests Test 05/03/17 21:15 05/03/17 21:45 05/04/17 08:09 05/05/17 05:30 White Blood Count 20.4 TH/MM3 (4.0-11.0) 13.8 TH/MM3 (4.0-11.0) Platelet Count 502 TH/MM3 (150-450) Mean Platelet Volume 6.9 FL (7.0-11.0) 6.8 FL (7.0-11.0) Neutrophils # (Auto) 13.3 TH/MM3 (1.8-7.7) 9.9 TH/MM3 (1.8-7.7) Lymphocytes # (Auto) 5.8 TH/MM3 (1.0-4.8) Monocytes # (Auto) 1.1 TH/MM3 (0-0.9) Neutrophils # (Manual) 13.7 TH/MM3 (1.8-7.7) Platelet Estimate HIGH (NORMAL) Calcium Level 8.3 MG/DL (8.5-10.1) 7.6 MG/DL (8.5-10.1) 7.9 MG/DL (8.5-10.1) Aspartate Amino Transf (AST/SGOT) 14 U/L (15-37) 12 U/L (15-37) 12 U/L (15-37) Potassium Level 2.8 MEQ/L (3.5-5.1) 3.2 MEQ/L (3.5-5.1) 3.4 MEQ/L (3.5-5.1) Estimat Glomerular Filtration Rate 72 ML/MIN (>89) Urine Bacteria RARE /hpf (NONE) Urine Mucus FEW /lpf (OCC) Neutrophils (%) (Auto) 71.9 % (16.0-70.0) Total Protein 5.9 GM/DL (6.4-8.2) 6.0 GM/DL (6.4-8.2) Albumin 2.9 GM/DL (3.4-5.0) 2.9 GM/DL (3.4-5.0) Chloride Level 108 MEQ/L (98-107) 109 MEQ/L (98-107) Blood Urea Nitrogen 6 MG/DL (7-18) Test 05/05/17 07:30 05/05/17 09:30 White Blood Count 12.7 TH/MM3 (4.0-11.0) Mean Platelet Volume 6.6 FL (7.0-11.0) Eosinophils (%) (Auto) 6.8 % (0.0-4.0) Neutrophils # (Auto) 8.1 TH/MM3 (1.8-7.7) Eosinophils # (Auto) 0.9 TH/MM3 (0-0.4) Hospital Course Mrs. Posadas is a 41-year-old female. She was admitted secondary to severe abdominal pain with ileus and hypokalemia. This had been preceded by a a course of Levaquin followed by 4 days of diarrhea. She has a history of C. difficile in the past. She cannot recall any viral exposures from other family members with GI issues or recent changes in diet to predispose her to food poisoning. She was treated here with bowel rest and Flagyl. Potassium levels were replaced. She is doing well today with improvement in her potassium levels and status post colonoscopy she has a diagnosis of colitis. No evidence for pseudomembranous colitis. Given she had leukocytosis at the start of her abdomen she'll be discharged with 10 days of Flagyl, 10 days a probiotic, and 5 days of potassium replacement. Medically stable for discharge to home today. Pt Condition on Discharge: Stable Discharge Disposition: Discharge Home Discharge Time: <= 30 minutes Discharge Instructions DIET: Follow Instructions for: As Tolerated, No Restrictions Activities you can perform: Regular-No Restrictions Follow up Referrals: Gastroenterology - 2 Weeks PCP Follow-up - 2 Weeks New Medications: Lactobacillus Acidophilus (Lactobacillus Acidophilus) 1 Billion Cell Tab 1 TAB PO TIDAC for Nutritional Supplement, #30 TAB 0 Refills Metronidazole (Metronidazole) 500 Mg Tab 500 MG PO TID for Infection, #30 TAB 0 Refills Potassium Chloride ER (Potassium Chloride ER) 20 Meq Tab 20 MEQ PO DAILY for Electrolyte Replacement, #5 TAB 0 Refills Continued Medications: Mometasone-Formoterol 120 Act Inh (Dulera 120 Act Inh) 100-5 Mcg/Act Inh 2 PUFF INH BID for Asthma Management, #1 INHALER 0 Refills Abdulaziz Ayala MD May 05, 2017 13:06
== END 2017-05-05 16:35 | disposition home or self-care (01) | DRG 392 ==
LOC: NEPE 20:35 → NEDA 23:20 → N06B 05-04 00:05
PROVIDERS: ADMIT Hospitalist; ATTEND Hospitalist
PROC: 0DBN8ZX Excision of Sigmoid Colon, Via Natural or Artificial Opening Endoscopic, Diagnostic (ICD-10-PCS; 2017-05-05)
PROC: 0DBC8ZX Excision of Ileocecal Valve, Via Natural or Artificial Opening Endoscopic, Diagnostic (ICD-10-PCS; principal; 2017-05-05 10:56)
DX: K52.9 Noninfective gastroenteritis and colitis, unspecified (principal); K56.7 Ileus, unspecified; E87.6 Hypokalemia; J40 Bronchitis, not specified as acute or chronic; K64.8 Other hemorrhoids; K64.4 Residual hemorrhoidal skin tags; F17.210 Nicotine dependence, cigarettes, uncomplicated
CPT/HCPCS: 71045; 74176; 76937; 80053; 81001; 83605; 83690; 83735; 84703; 85007; 85025; 85027; 87328; 87329; 87493; 87506; 88305; 96361; 96365; 96375; 96376; J1170; J2270; J2405; J3480; J7030; J8501